=== PATIENT | female | born 1980 | race Caucasian/White ===

== ENCOUNTER 2022-09-24 13:10 | Outpatient (CLI) | payer OTHER, SELFPAY | END 2022-09-24 13:11 | disposition home or self-care (01) | LOC: NFLDREF 09-25 20:07 | PROVIDERS: Visit Provider Family Medicine | DX: E03.9 Hypothyroidism, unspecified (principal); E06.3 Autoimmune thyroiditis | CPT/HCPCS: 84439; 84443; 84481 ==